=== PATIENT | male | born 1975 | race Caucasian/White ===

== ENCOUNTER 2024-04-03 00:34 | Emergency (ER) | payer MEDICAID, SELFPAY ==
[2024-04-03 00:39] VITALS: BP 163/90; PULSE 98; RESP 18; TEMP 36.5; O2SAT 94; BMI 27.9
[2024-04-03] MEDS: tetanus-dipt-pertussis 0.5 mL SDV IM (01:33)
[2024-04-03] MEDS: lidocaine 1% INJ 10 mL (per mL) 20 ML INJECTION (01:35)
--- NOTE | 2024-04-03 01:35 | ED_ITS ---
HPI - Wound/Laceration General: Chief Complaint: Wound/Laceration Stated Complaint: Right arm Injury Time Seen by Provider: 04/03/24 01:09 History of Present Illness: 48-year-old man who presents emergency r oom after he cut the back of his right distal forearm. Said he was burning boxes and he reached into get a box and the box cut his arm. He has about a 3 cm laceration on the dorsum of his distal wrist. He does not know when his last tetanus was. Initially has some trouble moving his fingers but this seems to be more from pain. Neurovascularly intact Related Data Allergies Allergy/AdvReac Type Severity Reaction Status Date / Time Penicillins Allergy Unknown Verified 04/03/24 00:43 Review of Systems Narrative: Constitutional symptoms: Negative except as documented in HPI. Skin symptoms: Negative except as documented in HPI. Eye symptoms: Negative except as documented in HPI. ENMT symptoms: Negative except as documented in HPI. Respiratory symptoms: Negative except as documented in HPI. Cardiovascular symptoms: Negative except as documented in HPI. Gastrointestinal symptoms: Negative except as documented in HPI. Genitourinary symptoms: Negative except as documented in HPI. Musculoskeletal symptoms: Negative except as documented in HPI. Neurologic symptoms: Negative except as documented in HPI. Psychiatric symptoms: Negative except as documented in HPI. Endocrine symptoms: Negative except as documented in HPI. Physical Exam Narrative: EXAM NARRATIVE: General: Alert, no acute distress. Skin: warm and dry, laceration the distal right dorsal wrist. Neurovascularly intact Head: Normocephalic Neck: Trachea midline Eye: Extraocular movements are intact. Ears, nose, mouth and throat: Oral mucosa moist Respiratory: Respirations are non-labored Musculoskeletal: Normal ROM Neurological: Alert and oriented, No focal neurological deficit observed. Psychiatric: Cooperative, appropriate mood & affect. Course Vital Signs: Vital signs: Vital Signs Temperature 97.7 F 04/03/24 00:39 Pulse Rate 98 04/03/24 00:39 Respiratory Rate 18 04/03/24 00:39 Blood Pressure 163/90 04/03/24 00:39 Pulse Oximetry 94 04/03/24 00:39 Oxygen Delivery Me thod Room Air 04/03/24 00:39 MDM - Wound/Laceration Medical Decision Making Laceration repair procedure: Time: 1:20 AM Confirmed patient, procedure, side, and site. Time out performed prior to procedure. Verbal consent was obtained by patient and/or responsible green party. Indication: Laceration Location: Left dorsal distal forearm. Just proximal to the wrist Length: 3 cm Description: Linear, subcutaneous Anesthesia: 8 mL 1% lidocaine without epinephrine Area prepared by sterile field with Betadine. # 5, 4-0 sutures were utilized, simple, interrupted technique. Post procedure examination: Circulation, motor, sensory intact. Patient tolerated the procedure well. No complications, bleeding. Total time: 15 min. Pt advised to keep the area clean and dry, wash twice per day with antibacterial soap and water. Return to the ED or PCP in 7 days for suture removal. Assessment and plan: Arm laceration ?Life-saving tetanus was administered - Discharged home - Discussed plan with patient. Answered any questions. - Evaluation and treatment of this problem were appropriate in the emergency setting. No radiology studies performed this visit Discharge Plan Discharge Patient Disposition: Home Clinical Impression: Laceration Condition: Stable Discharge Orders: Discharge ED (Routine); Ordered 04/03/24 Ordered By: Jocelyne Gifford Discharge Diet: As Directed Discharge Activity: Increase activity as tolerated Patient Instructions: Opioid Safety, Pain Management Activity Restrictions/Additional Instructions: Keep the area clean and dry, wash twice per day with antibacterial soap and water. Return to your primary provider or the emergency room in 7 days for suture removal. Avoid any prolonged submersion in water. Avoid all grove water, pond water, streams or other untreated water. Thank you for choosing [facility] for your healthcare needs today. Please realize this is an emergency room and that we are providing you with a medical screening exam and this may not be complete and all inclusive of all the testing and or work up that you may need to determine your ailment or severity of your illness. You have been screened and evaluated and felt safe for discharge. Health conditions do change or evolve sometimes and as such it is important that you follow up with your Primary Doctor to be re checked, 3-5 days is a general good time frame for follow up. You are always welcome to return to the ED for re assessment if your symptoms are worsening or you have new concerns Coding Level of Care Code ED Roll Dough Divider for Gerson Arcos
== END 2024-04-03 01:57 | disposition home or self-care (01) ==
PROVIDERS: Emergency Provider Emergency Medicine
DX: S61.511A Laceration without foreign body of right wrist, initial encounter (principal); W26.8XXA Contact with other sharp object(s), not elsewhere classified, initial encounter; Z23 Encounter for immunization
CPT/HCPCS: 12002; 90471; 90715; 99283